=== PATIENT | female | born 1960 | race African-American/Black ===

== ENCOUNTER 2016-12-12 18:41 | Emergency (ER) | payer OTHER ==
[~2016-12-12] VITALS: Ht 160 cm; Wt 95.0 kg
[~2016-12-12 18:41] MED LIST: CEPH500C3 PO; MEDR4PAK3 PO
[2016-12-12 18:44] VITALS: BP 160/86; PULSE 95; RESP 18; TEMP 98.8; O2SAT 98
--- NOTE | 2016-12-12 19:37 | PD ---
HPI Chief Complaint: ENT Complaint Time Seen by Provider: 19:15 Travel History International Travel<30 days: No Contact w/Intl Traveler<30days: No Traveled to known affect area: No History of Present Illness HPI This patient was eating some fish and felt like she swallowed a fishbone. Now returns she swallows she has a sharp stabbing sensation like she is having a needle jab her. Duration is one hour. PFSH Past Medical History Cardiovascular Problems: Yes (htn, no meds) Hypertension: Yes Tetanus Vaccination: < 5 Years Influenza Vaccination: Yes Tubal Ligation: Yes Past Surgical History Appendectomy: Yes Cholecystectomy: Yes Hysterectomy: Yes Social History Alcohol Use: Yes (occu) Tobacco Use: Yes (/2 ppd) Substance Use: No Allergies-Medications (Allergen,Severity, Reaction): Coded Allergies: Latex (Verified Allergy, Severe, HIVES, 12/12/16) Uncoded Allergies: MYCINS (Adverse Reaction, Severe, VOMITING, 04/07/16) Reported Meds & Prescriptions Reported Meds & Active Scripts Active Keflex (Cephalexin Monohydrate) 500 Mg Cap 500 Mg PO BID Medrol Dosepak (Methylprednisolone) 4 Mg Maynor 4 Mg PO DIRECTED TAKE DIRECTED Review of Systems General / Constitutional: No: Fever HENT: No: Headaches Cardiovascular: No: Chest Pain or Discomfort Physical Exam Narrative NECK: Symmetrical appearance, midline trachea. No mass or crepitus. Thyroid without enlargement, tenderness, or mass. SKIN: Focused skin assessment reveals no rash or ulcers. Skin is warm and dry. Palpation shows no induration or nodules. Psych: Normal mood and affect. Normal insight and judgment. Oral cavity: I can see behind the right tonsil a thin clear bone like structure Data Data Last Documented VS Vital Signs Date Time Temp Pulse Resp B/P Pulse Ox O2 Delivery O2 Flow Rate FiO2 12/12/16 18:44 98.8 95 18 160/86 98 MDM Medical Decision Making Medical Screen Exam Complete: Yes Emergency Medical Condition: Yes Medical Record Reviewed: Yes Differential Diagnosis Foreign body, globus sensation, laceration Narrative Course I have reviewed the patient's electronic medical record. With a set of pickups, I reached into her oral cavity and plucked out the bone. Tolerated well without complications She instantly had relief of symptoms Stable for outpatient follow-up Diagnosis Primary Impression: Pharyngeal foreign body Qualified Code: T17.208A - Pharyngeal foreign body, initial encounter Additional Instructions: The patient was advised to follow up with their physician and return if they worsen. Med/Other Pt SpecificInfo: Other Disposition: 01 DISCHARGE HOME Condition: Stable Deion Johnson MD Dec 12, 2016 19:37
[2016-12-12 20:19] VITALS: BP 136/83
== END 2016-12-12 20:20 | disposition home or self-care (01) ==
LOC: NEPC 18:41
DX: T17.228A Food in pharynx causing other injury, initial encounter (principal); I10 Essential (primary) hypertension; F17.210 Nicotine dependence, cigarettes, uncomplicated; X58.XXXA Exposure to other specified factors, initial encounter
CPT/HCPCS: 99283

== ENCOUNTER 2017-02-03 18:28 | Emergency (ER) | payer OTHER ==
[~2017-02-03] VITALS: Ht 160 cm; Wt 103.0 kg
[2017-02-03 18:29] VITALS: BP 147/81; PULSE 93; RESP 20; TEMP 98.5; O2SAT 97
--- NOTE | 2017-02-03 18:37 | PD ---
Physical Exam Time Seen by Provider: 18:35 Narrative 56 yo F c/o GRIDER, elevated BP, shooting pain from left thumb to shoulder started 1 hour ago or so. Denies chest pain, +SOB. Has not taken lisinopril for about a year. Patient seen in triage. VS reviewed. Awaiting bed placement. Data Data Last Documented VS Vital Signs Date Time Temp Pulse Resp B/P Pulse Ox O2 Delivery O2 Flow Rate FiO2 02/03/17 18:29 98.5 93 20 147/81 97 Room Air MDM Supervised Visit with SHERMAN: Jessika Laguerre Feb 03, 2017 18:37
[2017-02-03] MEDS ORDERED: SODIUM CHLORIDE 0.9% FLUSH 10 ML FLUSH IVF PRN (19:15)
--- NOTE | 2017-02-03 19:27 | PD ---
HPI Chief Complaint: Hypertension Time Seen by Provider: 19:03 Travel History International Travel<30 days: No Contact w/Intl Traveler<30days: No Traveled to known affect area: No History of Present Illness HPI Patient is a 56-year-old female presents emergency department for evaluation of left arm pain and high blood pressure. Patient states she had a mild headache after eating lunch today and some arm pain in her left side. Denied any chest pain. She sat down to take her blood pressure and noted it was elevated to 160s range. She had been on lisinopril the past but has not taken it in some time. She states that she is concerned because her blood pressure never been this high. On arrival to emerged Department blood pressure is actually much better. She denies any visual difficulties denies any shortness of breath denies any focalized weakness. Sates her arm pain is sharp and stabbing and worsen with movement. Denies any physical trauma. PFSH Past Medical History Cardiovascular Problems: Yes (HTN) Diminished Hearing: No Hypertension: Yes Influenza Vaccination: Yes Tubal Ligation: Yes Past Surgical History Appendectomy: Yes Cholecystectomy: Yes Hysterectomy: Yes Social History Alcohol Use: Yes (OCCASIONALLY) Tobacco Use: Yes (1/2 ppd) Substance Use: No Allergies-Medications (Allergen,Severity, Reaction): Coded Allergies: Latex (Verified Allergy, Severe, HIVES, 12/12/16) Uncoded Allergies: MYCINS (Adverse Reaction, Severe, VOMITING, 04/07/16) Reported Meds & Prescriptions Reported Meds & Active Scripts Active No Active Prescriptions or Reported Medications Review of Systems Except as stated in HPI: all other systems reviewed are Neg Physical Exam Narrative GENERAL: Well-developed well-nourished no obvious distress. SKIN: Focused skin assessment warm/dry. HEAD: Atraumatic. Normocephalic. EYES: Pupils equal and round. No scleral icterus. No injection or drainage. ENT: No nasal bleeding or discharge. Mucous membranes pink and moist. NECK: Trachea midline. No JVD. CARDIOVASCULAR: Regular rate and rhythm. No murmur appreciated. RESPIRATORY: No accessory muscle use. Clear to auscultation. Breath sounds equal bilaterally. GASTROINTESTINAL: Abdomen soft, non-tender, nondistended. Hepatic and splenic margins not palpable. MUSCULOSKELETAL: No obvious deformities. No clubbing. No cyanosis. No edema. NEUROLOGICAL: Awake and alert. Cranial nerves II through XII are grossly intact and nonfocal, 5 out of 5 strength in all 4 extremity's. PSYCHIATRIC: Appropriate mood and affect; insight and judgment normal. Data Data Last Documented VS Vital Signs Date Time Temp Pulse Resp B/P Pulse Ox O2 Delivery O2 Flow Rate FiO2 02/03/17 21:45 62 18 123/71 99 Room Air 02/03/17 18:29 98.5 Orders Electrocardiogram (02/03/17 19:04) Ckmb (Isoenzyme) Profile (02/03/17 19:04) Complete Blood Count With Diff (02/03/17 19:04) Comprehensive Metabolic Panel (02/03/17 19:04) Magnesium (Mg) (02/03/17 19:04) Prothrombin Time / Inr (Pt) (02/03/17 19:04) Act Partial Throm Time (Ptt) (02/03/17 19:04) Troponin I (02/03/17 19:04) Ecg Monitoring (02/03/17 19:04) Iv Access Insert/Monitor (02/03/17 19:04) Oximetry (02/03/17 19:04) Oxygen Administration (02/03/17 19:04) Sodium Chloride 0.9% Flush (Ns Flush) (02/03/17 19:15) Ketorolac Inj (Toradol Inj) (02/03/17 19:30) Chest, Single Ap (02/03/17 ) Spine, Cervical - Ltd (Ap&Lat) (02/03/17 ) CKMB (02/03/17 20:35) CKMB% (02/03/17 20:35) Labs Laboratory Tests Test 02/03/17 20:35 White Blood Count 6.9 TH/MM3 Red Blood Count 3.80 MIL/MM3 Hemoglobin 12.8 GM/DL Hematocrit 37.9 % Mean Corpuscular Volume 99.8 FL Mean Corpuscular Hemoglobin 33.6 PG Mean Corpuscular Hemoglobin 33.6 % Concent Red Cell Distribution Width 13.4 % Platelet Count 279 TH/MM3 Mean Platelet Volume 8.4 FL Neutrophils (%) (Auto) 53.5 % Lymphocytes (%) (Auto) 34.4 % Monocytes (%) (Auto) 9.4 % Eosinophils (%) (Auto) 2.0 % Basophils (%) (Auto) 0.7 % Neutrophils # (Auto) 3.7 TH/MM3 Lymphocytes # (Auto) 2.4 TH/MM3 Monocytes # (Auto) 0.6 TH/MM3 Eosinophils # (Auto) 0.1 TH/MM3 Basophils # (Auto) 0.0 TH/MM3 CBC Comment DIFF FINAL Differential Comment Prothrombin Time 10.0 SEC Prothromb Time International 0.9 RATIO Ratio Activated Partial 28.3 SEC Thromboplast Time Sodium Level 138 MEQ/L Potassium Level 4.1 MEQ/L Chloride Level 106 MEQ/L Carbon Dioxide Level 24.9 MEQ/L Anion Gap 7 MEQ/L Blood Urea Nitrogen 12 MG/DL Creatinine 1.02 MG/DL Estimat Glomerular Filtration 68 ML/MIN Rate Random Glucose 107 MG/DL Calcium Level 8.8 MG/DL Magnesium Level 2.4 MG/DL Total Bilirubin 0.7 MG/DL Aspartate Amino Transf 30 U/L (AST/SGOT) Alanine Aminotransferase 35 U/L (ALT/SGPT) Alkaline Phosphatase 80 U/L Total Creatine Kinase 208 U/L Creatine Kinase MB 2.1 NG/ML Creatine Kinase MB % 1.0 % Troponin I LESS THAN 0.02 NG/ML Total Protein 7.6 GM/DL Albumin 4.0 GM/DL MDM Medical Decision Making Medical Screen Exam Complete: Yes Emergency Medical Condition: Yes Interpretation(s) EKG shows sinus rhythm left axis deviation early R-wave transition. No concerning ST segment changes. The borderline EKG. Differential Diagnosis ACS unlikely, radiculopathy, and hypertensive emergency unlikely, hemorrhagic stroke unlikely, ischemic stroke unlikely. Narrative Course Patient 56-year-old female presents emergency Department with radiculopathy symptoms in the left upper extremity. She also noticed that her blood pressure was elevated. Blood pressures actually within normal limits in the emergency department. No indication to treat this time. Neurologically intact she does have a mild headache. No indication for CAT scan at this time and furthermore I think that pretest probability is extremely low and likely the risks of radiation outweigh the pretest probably. Basic labs EKG are reassuring. The patient was reassured and discussed return to ED criteria follow-up with her primary care physician. Diagnosis Primary Impression: Arm pain Additional Impression: Elevated blood pressure reading Scripts No Active Prescriptions or Reported Meds Disposition: 01 DISCHARGE HOME Condition: Stable Linus Bella MD Feb 03, 2017 19:27
[2017-02-03] MEDS ORDERED: KETOROLAC TROMETHAMINE 30 MG/ML (IVP) VIAL IV PUSH ONE (19:30)
--- NOTE | 2017-02-03 20:02 | RADRPT ---
EXAM DATE/TIME: 02/03/2017 19:33 [facility] COMPARISON: No previous studies available for comparison. INDICATIONS : Chest pain and left arm pain. MEDICAL HISTORY : Hypertension. SURGICAL HISTORY : None. ENCOUNTER: Initial ACUITY: 1 day PAIN SCORE: 10/10 LOCATION: Bilateral chest FINDINGS: A single view of the chest demonstrates the lungs to be symmetrically aerated without evidence of mas s, infiltrate or effusion. The cardiomediastinal contours are unremarkable. Osseous structures are intact. CONCLUSION: No evidence of acute cardiopulmonary disease. Timur Arndt MD on February 03, 2017 at 20:00 Board Certified Radiologist. This report was verified electronically.
--- NOTE | 2017-02-03 20:04 | RADRPT ---
EXAM DATE/TIME: 02/03/2017 19:34 [facility] COMPARISON: No previous studies available for comparison. INDICATIONS : Left sided neck pain and headaches for the past week. MEDICAL HISTORY : Hypertension. SURGICAL HISTORY : None. ENCOUNTER: Initial ACUITY: 1 week PAIN SCORE: 10/10 LOCATION: Left neck. FINDINGS: Cervical spine alignment is normal. Vertebral bodies have normal height. No significant disc space na rrowing. There is mild bilateral uncovertebral and facet osteoarthritis at C4/C5, C5/C6 and C6 on C7. Prominent lateral processes at C7, probably fused cervical ribs. CONCLUSION: No fracture or other acute abnormality of the cervical spine. Mild multilevel osteoarthritis without significant disc space narrowing. Please see above. Timur Arndt MD on February 03, 2017 at 20:01 Board Certified Radiologist. This report was verified electronically.
[2017-02-03 21:08] LABS: AUTOMATED NEUTROPHIL # 3.7 TH/MM3 (1.8-7.7); BASOPHIL % 0.7 % (0.0-2.0); EOSINOPHIL # 0.1 TH/MM3 (0-0.4); HEMATOCRIT 37.9 % (35.0-46.0); HEMO FLAGS DIFF FINAL; LYMPH % 34.4 % (9.0-44.0); LYMPHOCYTE # 2.4 TH/MM3 (1.0-4.8); MEAN CELL VOLUME 99.8 FL (80.0-100.0); MEAN CORPUSCULAR HEMOGLOBIN 33.6 PG (27.0-34.0); MEAN CORPUSCULAR HGB CONC 33.6 % (32.0-36.0); MONO % 9.4 % (0.0-8.0); NEUT % 53.5 % (16.0-70.0); PLATELET COUNT 279 TH/MM3 (150-450); RED CELL DISTRIBUTION WIDTH 13.4 % (11.6-17.2); WHITE BLOOD COUNT 6.9 TH/MM3 (4.0-11.0)
[2017-02-03 21:20] LABS: APTT (PATIENT) 28.3 SEC (24.3-30.1); INTERNATIONAL NORMALIZED RATIO 0.9 RATIO
[2017-02-03 21:27] LABS: ANION GAP 7 MEQ/L (5-15); BICARBONATE 24.9 MEQ/L (21.0-32.0); BLOOD UREA NITROGEN 12 MG/DL (7-18); CHLORIDE 106 MEQ/L (98-107); GLOMERULAR FILTRATION RATE 68 ML/MIN (>89); MAGNESIUM 2.4 MG/DL (1.5-2.5); SODIUM (NA) 138 MEQ/L (136-145)
[2017-02-03 21:29] LABS: POTASSIUM 4.1 MEQ/L (3.5-5.1)
[2017-02-03 21:35] LABS: ALKALINE PHOSPHATASE 80 U/L (45-117); ALT (GPT) 35 U/L (10-53); AST (GOT) 30 U/L (15-37); CREATINE KINASE 208 U/L (26-192); TOTAL BILIRUBIN ADULT 0.7 MG/DL (0.2-1.0)
[2017-02-03 21:45] VITALS: BP 123/71; PULSE 62; RESP 18; O2SAT 99
[2017-02-03 21:48] LABS: CKMB 2.1 NG/ML (0.5-3.6)
--- NOTE | 2017-02-04 05:09 | EKG ---
Date Performed: 02/03/2017 Time Performed: 19:02:18 PTAGE: 56 years EKG: Sinus rhythm MODERATE VOLTAGE CRITERIA FOR LVH, CONSIDER NORMAL VARIANT BORDERLINE ECG NO PREVIOUS TRACING DOCTOR: Josue Vanessa Interpretating Date/Time 02/04/2017 05:07:37
== END 2017-02-03 22:41 | disposition home or self-care (01) ==
LOC: NEPE 18:28
DX: M79.602 Pain in left arm (principal); I10 Essential (primary) hypertension; R94.31 Abnormal electrocardiogram [ECG] [EKG]; R51 Headache; F17.200 Nicotine dependence, unspecified, uncomplicated; Z86.79 Personal history of other diseases of the circulatory system
CPT/HCPCS: 71010; 72040; 80053; 82550; 82552; 83735; 84484; 85025; 85610; 85730; 93005; 96374; 99285; J1885